=== PATIENT | female | born 1985 | race Caucasian/White ===

== ENCOUNTER 2018-07-30 00:55 | Emergency (ER) | payer BC ==
[2018-07-30 01:01] VITALS: RESP 20; TEMP 96
[2018-07-30] MEDS ORDERED: KETOROLAC TROMETHAMINE 30 MG/ML SOL IM ONE (01:23)
[2018-07-30] MEDS ORDERED: LORAZEPAM 2 MG/ML SOL IM ONE (01:23)
[2018-07-30] MEDS ORDERED: LORAZEPAM 2 MG/ML SOL ONE (01:26)
[2018-07-30] MEDS ORDERED: KETOROLAC TROMETHAMINE 30 MG/ML SOL ONE (01:26)
[2018-07-30 01:55] VITALS: BP 108/67; PULSE 103; O2SAT 95
== END 2018-07-30 02:16 | disposition home or self-care (01) ==
LOC: ED 00:55
DX: S33.5XXA Sprain of ligaments of lumbar spine, initial encounter (principal)
CPT/HCPCS: 96372; 99282; 99283; J1885; J2060